=== PATIENT | female | born 1945 | race Caucasian/White ===

== ENCOUNTER 2020-03-27 13:43 | Emergency (ER) | payer MEDICARE, BC, SELFPAY ==
--- NOTE | ~2020-03-27 | XR_ITS ---
XR chest 2V 03/27/2020 14:29 Indication: Shortness of breath. Right posterior mid back pain. Procedure: 2 view chest Comparison: No prior studies for comparison. Findings: Cardiomegaly. There is atelectasis left lung base. Right lung clear. No pleural effusion or pneumothorax. No acute osseous abnormality. Impression: 1: Left basilar atelectasis. Reviewed, dictated and finalized at location A. Impression: 1: Left basilar atelectasis.
[2020-03-27 13:53] VITALS: BP 140/67; PULSE 65; RESP 20; TEMP 36.8; O2SAT 99
--- NOTE | 2020-03-27 14:19 | ED.GENADULT ---
HPI - General Adult General Chief complaint: Back Pain/Injury Stated complaint: lower back pain Time Seen by Provider: 03/27/20 14:28 Source: patient and RN notes reviewed Mode of arrival: ambulatory Limitations: no limitations History of Present Illness HPI narrative: 75-year-old female presents with concern for right posterior lateral mid back/rib pain. Reports pain started on , denies any injury or trauma. Reports pain worsens with position changes, lying on the area, a chair pushing against the area, deep breathing. Reports feeling tired, however she has been caring for her ill . She denies cough, fever, chills, body aches MD complaint: Chest wall pain Related Data Home Medications Medication Instructions Recorded Confirmed celecoxib [Celebrex] 200 mg PO BID 03/27/20 03/27/20 metoprolol succinate 100 mg PO DAILY 03/27/20 03/27/20 simvastatin 20 mg PO HS 03/27/20 03/27/20 triamterene-hydrochlorothiazid 1 tablet PO QAM 03/27/20 03/27/20 vit C,Y-Fd-ecwhk-lutein-zeaxan 1 tablet PO BID 03/27/20 03/27/20 [PreserVision AREDS-2] Allergies Allergy/AdvReac Type Severity Reaction Status Date / Time Sulfa (Sulfonamide AdvReac Severe Nausea and Verified 03/27/20 14:17 Antibiotics) Vomiting sulfamethoxazole AdvReac Severe Nausea and Verified 03/27/20 14:17 Vomiting trimethoprim AdvReac Severe Nausea and Verified 03/27/20 14:17 Vomiting codeine AdvReac Intermediate Nausea and Verified 03/27/20 14:17 Vomiting paper tape Allergy Mild Rash Uncoded 12/07/17 18:53 Review of Systems Review of Systems: Narrative: CONSTITUTIONAL: Denies malaise, chills, sweats, or fever. Reports fatigue EENT: Reports rhinorrhea, congestion. Denies sinus pain, otalgia or sore throat. CARDIOVASCULAR: Denies chest pain, palpitations, or edema. RESPIRATORY: Denies cough or dyspnea. GASTROINTESTINAL: Denies abdominal pain, nausea, vomiting, diarrhea, bloody, or mucous stools. GENITOURINARY: Denies dysuria or hematuria. SKIN: Denies bruising, redness MUSCULOSKELETAL: Denies right lateral/mid back pain/rib positional pain NEUROLOGIC: Denies numbness, weakness All systems reviewed & are unremarkable except as noted in HPI and below PMFSH Comments At time of signature, agree with nursing past medical, surgical, social and family history. There is no relevant family history pertinent to the presenting complaint Exam Narrative: Exam Narrative: GENERAL: Well-appearing, well-nourished, and in no acute distress. HEAD: Normocephalic, atraumatic. EYES: PERRLA, conjunctivae clear ENT: Mucous membranes moist. NECK: Supple. CHEST: No respiratory distress. Clear to auscultation. No bony deformities, no asymmetry. Speaks in full sentences. HEART: Regular rate and rhythm.s. Assessment: Reproducible pain and tenderness without erythema, edema, ecchymosis to the right posterior lower rib cage SKIN: Warm, dry, no rash. NEURO: Alert and oriented x3. PSYCH: Normal mood and affect Course Course Emergency Course: Patient is aware of diagnosis, understands and agrees to treatment plan. Anticipatory guidance given. Patient agrees to follow-up as directed and is aware of reasons to seek care at the emergency department. Portions of this record may have been created with voice recognition software Vital Signs Vital signs: Vital Signs Temperature 98.3 F 03/27/20 13:53 Pulse Rate 65 03/27/20 13:53 Respiratory Rate 03/27/20 13:53 Blood Pressure 140/67 03/27/20 13:53 Pulse Oximetry 99 03/27/20 13:53 Temperature 98.3 F 03/27/20 13:53 Pulse Rate 65 03/27/20 13:53 Respiratory Rate 03/27/20 13:53 Blood Pressure 140/67 03/27/20 13:53 Pulse Oximetry 99 03/27/20 13:53 Reviewed. Medical Decision Making MDM Narrative Medical decision making narrative: Patients pain is consistent with musculoskeletal etiology. No signs of neurological or vascular compromise on exam. Compartments and tissues are soft
== END 2020-03-27 14:56 | disposition home or self-care (01) ==
PROVIDERS: Emergency Provider Nurse Practitioner; PCP Internal Medicine
DX: R07.81 Pleurodynia (principal); J98.11 Atelectasis; E78.00 Pure hypercholesterolemia, unspecified; I10 Essential (primary) hypertension; M19.90 Unspecified osteoarthritis, unspecified site
CPT/HCPCS: 71046; 99213; G0463